=== PATIENT | female | born 1940 | race Caucasian/White ===

== ENCOUNTER 2017-03-01 15:30 | Inpatient (IN) | payer OTHER ==
[~2017-03-01] VITALS: Ht 152.4 cm; Wt 32.3 kg
--- NOTE | ~2017-03-01 | DS ---
[place], [place] DISCHARGE SUMMARY NAME: FRANKLYN CASTILLO [facility] #: [id number] UNIT #: [id number] ROOM: 506 DOCTOR: RUBÉN BRAUN MD BIRTHDATE: [birth year] DOS: 03/03/2017 HISTORY OF PRESENT ILLNESS: The patient has been admitted to hospital with wound infection with hypokalemia. She is feeling very good now and asymptomatic. She is expressing desire to go home and will be given antibiotic by mouth to be taken at home. She has also history of hypokalemia, anemia, hyperglycemia, tobacco abuse, protein caloric malnutrition, essential hypertension, mixed hyperlipidemia, hypothyroidism, COPD, GERD syndrome, vitamin D deficiency. I discussed with the patient in detail that she needs to stop smoking and counseling done about it in detail. The wound is healing satisfactorily. Her wound culture and sensitivity showed moderate white blood cells with gram-positive cocci, which are sensitive to tetracycline and sulfa and the other two ____ which are also sensitive to Bactrim-DS, so I will discharge the patient on Bactrim-DS twice daily and advise to clean her wound properly and address it properly and she will be seen in the office next week. Her blood culture was negative at the time of discharge. The patient's blood pressure 137/87, pulse is 94, respirations 18, temperature 98.5. RUBÉN BRAUN MD CM:DISCHHENRY [id number] RUBÉN BRAUN MD 03/05/17 0525 interface
[~2017-03-01 15:30] MED LIST: AMLODIPINE10 MG PO; ASPIR 8181 MG PO; AVINZA30 M1 PO; BISACODYL LAXATI5 MG PO; CARAFATE1 G1 PO; DIOVAN HCT 25 M1 TA2 PO; DIOVAN320 MG; DIOVAN320 MG PO; METOPROLOL SR25 MG PO; OSCAL/D,OYSTER250 MG PO; OYSTER SHELL CA1 GRA; PRILOSEC20 MG PO; PROTONIX40 MG PO; SENNA PLUS 50 M1 TA1 PO; SENNA PLUS 50 M1 TAB; SENNA PLUS 50 M1 TAB PO; SERTRALINE HYD100 MG PO; SERZONE100 MG PO; SYMBICORT1 AE1 INH; SYNTHROID0.112 MG PO; VITAMIN D2000 IU PO
[2017-03-01 15:39] VITALS: BP 143/71
--- NOTE | 2017-03-01 16:26 | NUR ---
AREA CLEANED WITH SALINE AND BETADINE AND DRESSING APPLIED. JUNIOR UPTON RN.
[2017-03-01 16:36] LABS: BASO % 0.6 % (0.0-1.0); EOS # 0.1 10*3/uL (0.0-0.4); EOS % 1.2 % (1.0-4.0); HEMATOCRIT 33.6 % (37.0-47.0); HEMOGLOBIN 11.6 g/dl (12.0-16.0); LYMPH # 0.8 10*3/uL (1.3-4.4); LYMPH % 14.8 % (27.0-41.0); MEAN CELL VOLUME 92.1 fl (81.0-99.0); MEAN CORPUSCULAR HGB 31.8 pg (27.0-31.0); MEAN CORPUSCULAR HGB CONC 34.5 g/dl (33.0-37.0); MEAN PLATELET VOLUME 9.8 fl (9.6-12.3); MONO # 0.5 10*3/uL (0.1-1.0); MONO % 9.5 % (3.0-9.0); NEUT # 3.7 10*3/uL (2.3-7.9); NEUT % 73.3 % (47.0-73.0); PLATELET COUNT AUTOMATED 190 10*3/uL (130-400); RED BLOOD COUNT 3.65 10*6/uL (4.10-5.10); RED CELL DISTRI WIDTH 13.2 % (0-14.5); WHITE BLOOD COUNT 5.1 10*3/uL (4.8-10.8)
[2017-03-01 16:52] LABS: ALBUMIN 3.4 gm/dl (3.1-4.5); ALKALINE PHOSPHATASE 114 U/L (45-117); BUN 18 mg/dl (7-24); CHLORIDE 107 mmol/L (98-107); CREATININE 0.83 mg/dL (0.55-1.02); POTASSIUM 3.2 mmol/L (3.5-5.1); SGOT/AST 43 IU/L (3-35); SGPT/ALT 60 U/L (12-78); SODIUM 140 mmol/L (136-145); TOTAL PROTEIN 7.9 gm/dL (6.4-8.2)
[2017-03-01 18:15] VITALS: BP 139/58
--- NOTE | 2017-03-01 18:15 | NUR ---
A 76, admitted to 5E, under the services of HERRERA Barker MD with a diagnosis of . Chief complaint is WOUND INFECTION. Patient arrived via ambulatory from ER. Monitor applied. Initial assessment completed. Vital signs taken and recorded. HERRERA BARKER MD notified of admission to the unit. Orders received. See assessment for past medical history, medications and allergies. Patient and/or family oriented to unit. visitation policy reviewed. Clothing/patient valuable form completed. NANCY VARGAS L
[2017-03-01] MEDS ORDERED: MORPHINE SULFAT10 M3 PO (20:03)
[2017-03-01 20:45] VITALS: BP 126/66
[2017-03-02] VITALS: BP 126/58
[2017-03-02 04:00] VITALS: BP 128/56
[2017-03-02 06:52] LABS: BASO % 0.4 % (0.0-1.0); EOS # 0.1 10*3/uL (0.0-0.4); EOS % 1.5 % (1.0-4.0); HEMATOCRIT 32.8 % (37.0-47.0); HEMOGLOBIN 11.2 g/dl (12.0-16.0); LYMPH % 21.1 % (27.0-41.0); MEAN CELL VOLUME 91.1 fl (81.0-99.0); MEAN CORPUSCULAR HGB 31.1 pg (27.0-31.0); MEAN CORPUSCULAR HGB CONC 34.1 g/dl (33.0-37.0); MEAN PLATELET VOLUME 10.1 fl (9.6-12.3); MONO # 0.4 10*3/uL (0.1-1.0); MONO % 7.9 % (3.0-9.0); NEUT # 3.1 10*3/uL (2.3-7.9); NEUT % 68.7 % (47.0-73.0); PLATELET COUNT AUTOMATED 198 10*3/uL (130-400); RED CELL DISTRI WIDTH 13.2 % (0-14.5); WHITE BLOOD COUNT 4.5 10*3/uL (4.8-10.8)
[2017-03-02 07:18] LABS: ALBUMIN 3.2 gm/dl (3.1-4.5); ALKALINE PHOSPHATASE 106 U/L (45-117); BUN 18 mg/dl (7-24); CHLORIDE 111 mmol/L (98-107); CHOLESTEROL 91 mg/dL (<200); CREATININE 0.72 mg/dL (0.55-1.02); HDL CHOLESTEROL 59 mg/dl (40-60); LDL CHOLESTEROL 19 mg/dL (9-159); PHOSPHOROUS 2.7 mg/dL (2.5-4.9); POTASSIUM 3.6 mmol/L (3.5-5.1); SGOT/AST 30 IU/L (3-35); SGPT/ALT 50 U/L (12-78); SODIUM 141 mmol/L (136-145); TOTAL PROTEIN 7.3 gm/dL (6.4-8.2); TRIGLYCERIDES 67 mg/dl (<150); VLDL CHOLESTEROL 13 mg/dL (6-40)
[2017-03-02 07:23] LABS: THYROID STIM HORMONE (HS) 0.077 uIU/ml (0.358-4.75)
[2017-03-02 07:24] LABS: ACT PARTIAL THROMBO TIME 26.6 SECONDS (20.8-31.5)
--- NOTE | 2017-03-02 07:52 | NUR ---
PT REQUESTED AND WAS MEDICATED WITH NORCO FOR C/O GENERALIZED PAIN. RESP EASY AND NONLABORED ON RA. CALL LIGHT IN REACH. WILL MONITOR
[2017-03-02 08:00] VITALS: BP 140/65
--- NOTE | 2017-03-02 08:00 | NUR ---
Elevator Inspector in to talk to patient. Patient states lives at HOME with HER SON. There are 0 steps in the home. Physician: DR JOSHUA Pharmacy: [facility] IN [place] Home health services: NONE Patient's level of ADLs: INDEPENDENT Patient has working utilities: YES DME: NEB/O2 FROM [facility] Follow-up physician's appointment after d/c: PREFERS TO MAKE HER OWN APPT Does patient want to access PORTAL?: Discharge plan HOME. ELIAS HERRERA
[2017-03-02 08:28] LABS: VITAMIN D, 25-HYDROXY 16.2 ng/mL (30-100)
[2017-03-02 12:00] VITALS: BP 133/68
--- NOTE | 2017-03-02 12:58 | NUR ---
PT REQUESTED AND WAS MEDICATED WITH DILAUDID FOR C/O RIGHT SHOULDER PAIN. CALL LIGHT IN REACH. WILL MONITOR
--- NOTE | 2017-03-02 14:00 | NUR ---
MEDICATION EFFECTIVE. CALL LIGHT IN REACH. WILL MONITOR
--- NOTE | 2017-03-02 15:22 | NUR ---
Patient resting quietly with no c/o discomfort. Respirations easy and regular. Vital signs stable. No overt distress. GÉNESIS SERRANO R
[2017-03-02 16:00] VITALS: BP 131/59
[2017-03-02 20:00] VITALS: BP 149/78
--- NOTE | 2017-03-02 21:22 | NUR ---
PRN RESTORIL AND TYLENOL GIVEN FOR PT COMPLAINTS OF SLEEPLESSNESS AND GENERALIZED BACK PAIN RATING IT A 5/10. CALL LIGHT WITHIN REACH, WILL MONITOR
[2017-03-03] VITALS: BP 156/81
--- NOTE | 2017-03-03 00:01 | NUR ---
PRN DILAUDID GIVEN FOR PT COMPLAINTS OF CONTINUED BACK PAIN RATING IT A 5 OUT OF 10. PRN TYLENOL INEFFECTIVE PER PT. PRN RESTORIL INEFFECTIVE WELL
--- NOTE | 2017-03-03 01:00 | NUR ---
PRN MEDICATION APPEARS EFFECTIVE, PT SLEEPING, BREATHING IS EASY AND REGULAR WITHOUT DISTRESS. CALL LIGHT WITHIN REACH, PHYLICIA ANTONIO
[2017-03-03 06:02] LABS: BASO % 0.5 % (0.0-1.0); EOS # 0.1 10*3/uL (0.0-0.4); EOS % 1.7 % (1.0-4.0); HEMATOCRIT 32.3 % (37.0-47.0); LYMPH % 23.6 % (27.0-41.0); MEAN CELL VOLUME 92.6 fl (81.0-99.0); MEAN CORPUSCULAR HGB 31.5 pg (27.0-31.0); MEAN CORPUSCULAR HGB CONC 34.1 g/dl (33.0-37.0); MEAN PLATELET VOLUME 9.9 fl (9.6-12.3); MONO # 0.5 10*3/uL (0.1-1.0); MONO % 12.7 % (3.0-9.0); NEUT # 2.5 10*3/uL (2.3-7.9); NEUT % 60.8 % (47.0-73.0); PLATELET COUNT AUTOMATED 196 10*3/uL (130-400); RED BLOOD COUNT 3.49 10*6/uL (4.10-5.10); RED CELL DISTRI WIDTH 13.1 % (0-14.5); WHITE BLOOD COUNT 4.2 10*3/uL (4.8-10.8)
[2017-03-03 06:31] LABS: BUN 19 mg/dl (7-24); CHLORIDE 107 mmol/L (98-107); CREATININE 0.72 mg/dL (0.55-1.02); POTASSIUM 3.7 mmol/L (3.5-5.1); SODIUM 141 mmol/L (136-145)
[2017-03-03 06:35] LABS: FREE T4 2.64 ng/dl (0.76-1.46)
[2017-03-03 08:00] VITALS: BP 140/73
--- NOTE | 2017-03-03 08:00 | NUR ---
RESTING QUIETLY IN BED, NO C/O NO DISTRESS NOTED. DRESSING TO RIGHT ARM DRY AND INTACT. SEE SHIFT ASSESSMENT.
[2017-03-03 12:00] VITALS: BP 136/87
--- NOTE | 2017-03-03 14:29 | NUR ---
MEDICATED IV DILAUDID FOR C/O RIGHT ARM PAIN. RATES PAIN 7/10. WILL CONTINUE TO MONITOR.
--- NOTE | 2017-03-03 16:45 | NUR ---
DISCHARGED TO HOME IN CARE OF DAUGHTER. INSTRUCTIONS AND PERSCRIPTIONS REVIEWED WITH PT.
== END 2017-03-03 16:45 | disposition home or self-care (01) | DRG 604 ==
LOC: ED 15:30 → EDHOLD 17:28 → 5E 17:28
PROVIDERS: Internal Medicine; Nurse Practitioner; ADMIT Internal Medicine
DX: S51.811A Laceration without foreign body of right forearm, initial encounter (principal); E43 Unspecified severe protein-calorie malnutrition; D64.9 Anemia, unspecified; J44.9 Chronic obstructive pulmonary disease, unspecified; Z68.1 Body mass index [BMI] 19.9 or less, adult; E87.6 Hypokalemia; E03.9 Hypothyroidism, unspecified; E55.9 Vitamin D deficiency, unspecified; E78.2 Mixed hyperlipidemia; K21.9 Gastro-esophageal reflux disease without esophagitis; M19.90 Unspecified osteoarthritis, unspecified site; R94.6 Abnormal results of thyroid function studies; F17.200 Nicotine dependence, unspecified, uncomplicated; R74.0 Nonspecific elevation of levels of transaminase and lactic acid dehydrogenase [LDH]; I10 Essential (primary) hypertension; R73.9 Hyperglycemia, unspecified; Y93.E2 Activity, laundry; Z71.6 Tobacco abuse counseling; Z88.2 Allergy status to sulfonamides; Z88.8 Allergy status to other drugs, medicaments and biological substances; Z91.041 Radiographic dye allergy status; Z79.82 Long term (current) use of aspirin; Z79.899 Other long term (current) drug therapy; Z90.710 Acquired absence of both cervix and uterus; Z82.3 Family history of stroke; Z83.3 Family history of diabetes mellitus; Z82.49 Family history of ischemic heart disease and other diseases of the circulatory system; Z98.51 Tubal ligation status; W31.89XA Contact with other specified machinery, initial encounter; Y92.098 Other place in other non-institutional residence as the place of occurrence of the external cause; Y99.8 Other external cause status

== ENCOUNTER → 2017-03-19 | Outpatient (CLI) | payer OTHER ==
[~2017-03-19] MED LIST changes: +MORPHINE SULFAT10 M3 PO
[2017-03-20 08:12] LABS: HEPATITIS B SURFACE AG Negative (Negative); HEPATITIS C VIRUS ANTIBODY 0.1 s/co (0.0-0.9)
== END | disposition home or self-care (01) ==
LOC: LAB 08:33 → US 09:30
PROVIDERS: Internal Medicine
DX: N13.30 Unspecified hydronephrosis (principal); N28.1 Cyst of kidney, acquired; I71.4 Abdominal aortic aneurysm, without rupture; R74.0 Nonspecific elevation of levels of transaminase and lactic acid dehydrogenase [LDH]; R13.10 Dysphagia, unspecified

== ENCOUNTER → 2017-04-24 | Outpatient (CLI) | payer OTHER | END | disposition home or self-care (01) | LOC: MRI 10:30 | DX: I71.4 Abdominal aortic aneurysm, without rupture (principal); K83.8 Other specified diseases of biliary tract; N13.39 Other hydronephrosis ==

== ENCOUNTER 2017-08-16 10:01 | Inpatient (IN) | payer OTHER ==
[~2017-08-16] VITALS: Ht 154.9 cm; Wt 38.2 kg
[2017-08-16] VITALS (7 sets, daily range): BP systolic 122–164; BP diastolic 78–92
--- NOTE | ~2017-08-16 | PR ---
[place], [place] PROGRESS NOTE NAME: FRANKLYN CASTILLO UNIT #: [id number] ROOM: 522 DOCTOR: TIKA PRIEST MD BIRTHDATE: [birth year] DOS: 08/21/2017 SUBJECTIVE: The patient has been noted with reduction of coughing from yesterday. Wheezing and shortness of breath has been improving. She was also participating in physical therapy and walking with the physical therapy at this morning. OBJECTIVE: VITAL SIGNS: Which were recorded showed normal temperature, respiratory rate 20, heart rate 71, blood pressure 148/66. Pulse ox saturation 97% saturation on 2 liters nasal cannula. HEENT: No acute change. NECK: Supple. CARDIOVASCULAR: S1, S2 is audible. LUNGS: The patient was noted without any wheeze or crackles at the present time. ABDOMEN: Soft, nontender. Bowel sounds present. EXTREMITIES: Without any acute edema. LABORATORY DATA: CBC on 08/21/2017, hemoglobin 11.2, hematocrit 32.1, WBC count normal, platelet count normal. BMP this morning, glucose 124, BUN 21, creatinine normal, sodium 127. The culture of the bronchial washing noted moderate growth of yeast. Gram stain, many white blood cells with moderate epithelial cells, few gram-positive cocci in pairs and chains and few budding yeast. IMPRESSION: The patient with resolving acute exacerbation of chronic obstructive pulmonary disease for this patient's current medical management with progressive reduction in respiratory symptoms noted significant improvement after bronchoscopy. The coughing has been noted significantly decreased. PLAN OF MANAGEMENT: Monitor final culture results. The patient has been assessed for home oxygen supplementation and would need oxygen supplementation with exertion and sleep. PLAN OF TREATMENT: Reduce the Solu-Medrol dose 40 mg b.i.d. today at the present time. Monitor respiratory status in the next 24 hours and possible discharge consideration for the morning. ASSESSMENT: Management discussed with one of the daughters of patient who was present in the room. No changes in antibiotics will be necessary. [place], [place] PROGRESS NOTE NAME: FRANKLYN CASTILLO UNIT #: [id number] ROOM: 522 DOCTOR: TIKA PRIEST MD BIRTHDATE: [birth year] TIKA TOWNSEND MD CM:PNTRANS [id number] TIKA CARRILLO MD 08/21/17 1539 interface
--- NOTE | ~2017-08-16 | PR ---
[place], [place] PROGRESS NOTE [facility] [id number] UNIT #: [id number] ROOM: 522 DOCTOR: KRISTIAN CARRILLO MD,TIKA BIRTHDATE: [birth year] DOS: 08/23/2017 SUBJECTIVE: The patient noted without any acute distress at this time, comfortably resting on the chair. She was planned for possible home discharge today. OBJECTIVE: VITAL SIGNS: Normal temperature, respiratory rate 20, heart rate 86, blood pressure 135/59. Pulse ox saturation on 2 liters nasal cannula 93% saturation. HEENT: No new change. NECK: Supple. CARDIOVASCULAR: S1, S2 is audible. LUNGS: Without any wheeze or crackles at the present time. ABDOMEN: Soft, nontender. Bowel sounds present. EXTREMITIES: Without any acute edema. IMPRESSION: 1. Progressive resolution of acute exacerbation of chronic obstructive pulmonary disease for this patient was noted. 2. Right hydronephrosis. The patient was noted with ____ like right UV junction obstruction for the patient on the CT scan of the abdomen and pelvis, which was done yesterday. PLAN OF MANAGEMENT: From the pulmonary standpoint, the patient with no change in treatment, discharge for this patient whenever stable medically from pulmonary standpoint. Continue the therapy, plan of management and care. Usual treatment, other supportive plan of care and treatments. TIKA TOWNSEND MD CM:PNTRANS [id number] TIKA CARRILLO MD 08/23/17 1521 interface
--- NOTE | ~2017-08-16 | EKG ---
[place], [place] ELECTROCARDIOGRAM REPORT NAME: FRANKLYN CASTILLO UNIT #: [id number] ROOM: 522 DOCTOR: KRISTIAN CARRILLO MD,TIKA BIRTHDATE: [birth year] DOS: 08/18/2017 ELECTROCARDIOGRAM TIME: At 2:44 p.m. Electrocardiogram showed normal sinus rhythm. Heart rate 86 beats per minute. Nonspecific ST-T changes were noted. TIKA TOWNSEND MD CM:EKGRPT:ELECTROCARDIOGRAM REPORT [id number] TIKA CARRILLO MD
--- NOTE | ~2017-08-16 | PR ---
[place], [place] PROGRESS NOTE NAME: FRANKLYN CASTILLO UNIT #: [id number] ROOM: 522 DOCTOR: TIKA PRIEST MD BIRTHDATE: [birth year] DOS: 08/20/2017 SUBJECTIVE: The patient noted n.p.o. past midnight and bronchoscopy planned for today. The patient has not been reported any symptoms of chest pain. Denies symptoms of nausea, vomiting, diarrhea or any abdominal pain. She has been continued on previous treatment, Solu-Medrol, bronchodilators, Mucinex and other which are not noted effective to resolve the cough. The remaining systems were reviewed, they were noted all negative. OBJECTIVE: VITAL SIGNS: For the patient which has been recorded showed normal temperature, respiratory rate 20, heart rate 73, blood pressure 151/74. Pulse oxygen saturation on 2 liters nasal cannula 94% saturation. HEENT: Examination shows head was atraumatic. Eyes nonicterus. NECK: Supple. CARDIOVASCULAR: S1, S2 audible. LUNGS: Noted without any crackles. Expiratory wheezing. Noted in the lungs bilaterally remains persistent. ABDOMEN: Soft, nontender. EXTREMITIES: Without any acute edema with skin lesions or rashes. CENTRAL NERVOUS SYSTEM: Cranial nerves 2-12 intact. No focal deficits. MUSCULOSKELETAL: Without acute deformity. LABORATORY DATA: BMP this morning, normal BUN and creatinine. CBC this morning, hemoglobin 10.6, WBC count and platelet count normal. IMPRESSION: Acute exacerbation of chronic obstructive pulmonary disease, cough and wheezing, which has been noted persistent. N.p.o. past midnight for the patient last night for bronchoscopy planned for today. Over debility. PLAN OF MANAGEMENT: Proceed with bronchoscopy at this time, no changes in the treatment for this patient at this time will be necessary. If any change in the treatment necessary for patient will be ordered for the patient after a bronchoscopy. Usual care. All other supportive therapy, plan of management. [place], [place] PROGRESS NOTE NAME: FRANKLYN CASTILLO UNIT #: [id number] ROOM: 522 DOCTOR: TIKA PRIEST MD BIRTHDATE: [birth year] TIKA TOWNSEND MD CM:PNTRANS [id number] TIKA CARRILLO MD 08/20/17 2311 interface
--- NOTE | ~2017-08-16 | PR ---
[place], [place] PROGRESS NOTE NAME: FRANKLYN CASTILLO [facility] #: [id number] UNIT #: [id number] ROOM: 522 DOCTOR: KRISTIAN CARRILLO MD,TIKA BIRTHDATE: [birth year] DOS: 08/22/2017 SUBJECTIVE: She has been noted to have progressive improvement and resolution of the acute symptoms with improving shortness of breath. She denies symptoms of chest pain. Coughing has improved markedly. Shortness of breath and wheezing was resolving progressively. OBJECTIVE: VITAL SIGNS: For the patient which were recorded showed the temperature noted as normal. The respiratory rate of the patient recorded as 20, heart rate 85, blood pressure 155/73. Pulse oxygen saturation on 2 liters nasal cannula at rest was 95% saturation. The patient noted to desaturate 6-minute walk test, will be requiring oxygen supplementation. HEENT: Examination shows head was atraumatic. Eyes nonicterus. NECK: Supple. CARDIOVASCULAR: S1, S2 audible. LUNGS: Noted with no wheezing, no crackles. ABDOMEN: Soft, nontender. Bowel sounds present. EXTREMITIES: No acute edema. LABORATORY DATA: CBC of the patient noted mild anemia, normal WBC, platelet count. Acid fast bacillus bronchial washing negative. Final culture results were pending. Culture of the bronchial washing of the patient were noted moderate growth of yeast. BMP today noted normal BUN and creatinine. IMPRESSION: The patient has been currently noted stable at the present time with progressive improvement and resolution of the acute respiratory failure. The patient with acute tracheobronchitis, the patient with chronic obstructive pulmonary disease exacerbation, improving ____ PLAN OF TREATMENT: Discharge the patient on home oxygen with tapering dose of prednisone and the antibiotics. Outpatient followup suggested post-discharge. TIKA TOWNSEND MD CM:PNTRANS [phone] TIKA CARRILLO MD 08/22/17 1754 interface
--- NOTE | ~2017-08-16 | PROC NOTE ---
[place], [place] PROCEDURE NOTE NAME: FRANKLYN CASTILLO UNIT #: [id number] ROOM: 522 DOCTOR: KRISTIAN CARRILLO MD,TIKA BIRTHDATE: [birth year] DOS: 08/20/2017 BRONCHOSCOPY NOTE PREOPERATIVE DIAGNOSES: Severe cough and wheezing, maximum medical therapy, nonresolving. POSTOPERATIVE DIAGNOSES: Acute severe inflammatory changes noted in the airway with tracheobronchitis as well as severe impaction of the mucus plugs noted in endobronchial tree, all of the subsegments. No endobronchial obstructive lesions. PROCEDURE DESCRIPTION: Informed consent obtained from the patient. The patient brought to the OR and placed in supine position. Conscious sedation was given by the Anesthesia Department physician. After that the bronchoscope advanced to the airway into the laryngeal area. Epiglottis and vocal cords were seen. Vocal cords moving symmetrical movements, yellowish in color. Bronchoscope advanced through vocal cord and tracheal lumen noted very thick mucoid secretion with purulent secretions suctioned out to the sanchez level. The current noted sharp. Right upper, right middle, right lower, left upper, lingular bronchi was all noted impacted with very thick plugs of the mucus removed from the endobronchial tree bilaterally. Severe inflammatory changes noted with very friable mucosa with touch of the scope. The mucus plug was extracted from the endobronchial tree subsegments bilaterally sent for cultures. Procedure well tolerated by the patient. TIKA TOWNSEND MD CM:PROCNOTE:PROCEDURE NOTE [id number] TIKA CARRILLO MD
--- NOTE | ~2017-08-16 | CON ---
[place], [place] REPORT OF CONSULTATION NAME: FRANKLYN CASTILLO [facility] #: [id number] UNIT #: [id number] ROOM: 522 DOCTOR: TIKA PRIEST MD BIRTHDATE: [birth year] DOS: 08/18/2017 CONSULTATION REQUESTED BY: Dr. Campbell. REASON FOR CONSULTATION: Nonresolution of current symptoms with acute exacerbation of COPD. HISTORY OF PRESENT ILLNESS: This 77-year-old white female patient who has been admitted to the hospital under care of Dr. Yadira Campbell as the patient has been noted progressively increased respiratory symptoms with coughing and productive cough for several days. She has been treated as an outpatient with azithromycin with tapering prednisone, later Levaquin, but no response to the treatment was noted. The patient has been admitted to the hospital for further medical management. 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 The symptoms were noted recently worsened with the current illness. The patient has been noted coughing issues, sputum expectoration, thick yellowish in color. Currently noted with no sputum expectoration excessive, severe coughing with chest congestion. She was also noticed with symptoms of shortness breath that occurs with exertion, not noted at rest. She denies any symptoms of chest pain at this time. REVIEW OF SYSTEMS: Remaining systems were reviewed for the patient as follows: CONSTITUTIONAL: She does report symptoms of fatigue and tiredness. Denies symptoms of fever or chills. EYES: Denies any burning, redness, or tenderness. EARS, NOSE, THROAT SYMPTOMS: Denies sore throat, hoarseness, otalgia, postnasal drainage or epistaxis. CARDIOVASCULAR: Denies anginal pain, edema or pain of lower extremities. GASTROINTESTINAL: Denies dysphagia, nausea, vomiting, diarrhea, abdominal pain, hematemesis, melena or hematochezia. SKIN: Denies any lesions or rashes. MUSCULOSKELETAL: No acute joint pain, redness, or tenderness. Remaining systems were reviewed, they were noted all negative. PAST MEDICAL HISTORY: 1. COPD. 2. Dependence of the pain medication. The patient currently stopped taking Percocet. 3. History of degenerative arthritis. 4. Gastroesophageal reflux. 5. Chronic pain syndrome. 6. Hypothyroidism. 7. Mixed hyperlipidemia. 8. Chronic nicotine abuse. 9. History of vitamin D deficiency. SOCIAL HISTORY: Reported as , six children. Tobacco use since age of [age] years old, a pack of cigarettes a day, active use. No history of alcohol or use illicit drugs. [place], [place] REPORT OF CONSULTATION NAME: FRANKYLN CASTILLO UNIT #: [id number] ROOM: 522 DOCTOR: TIKA PRIEST MD BIRTHDATE: [birth year] FAMILY HISTORY: The patient's father from complications of esophageal cancer at age of 8282 years old. Mother at 72 years old with complication of CVA and hypertension. PAST SURGICAL HISTORY: Noted: 1. Right shoulder arthroscopy. 2. Complete abdominal hysterectomy. 3. Peptic ulcer surgery. HOME MEDICATIONS: Noted use of Ventolin HFA, amlodipine, aspirin, Symbicort, levothyroxine, metoprolol, omeprazole, Percocet recently discontinued, Protonix, Senna Plus, sertraline, Flomax, losartan and vitamin D. DRUG ALLERGIES: Reported allergies to: 1. SULFA DRUGS. 2. HYDROCHLOROTHIAZIDE. 3. IRON. PHYSICAL EXAMINATION: GENERAL: A 77-year-old female patient currently sitting on her bed for the patient without acute distress. Height of 5 feet 1 inch, weight of 75 pounds. VITAL SIGNS: Noted as temperature 99.3 degrees Fahrenheit to normal temperature, respirations 16-20, heart rate 90-89, blood pressure 126/64-152/74. The pulse ox saturation on 2 liters nasal cannula at 99-100% saturation noted. HEENT: Head was atraumatic. Eyes nonicterus. NECK: Supple. CARDIOVASCULAR: S1, S2 is audible. LUNGS: The patient was noted without any crackles. Diffuse expiratory wheezing were noted, which was severe. Breath sounds are noted mildly decreased. ABDOMEN: Flat, soft, nontender. Bowel sounds present. EXTREMITIES: Without any acute edema, clubbing, cyanosis. MUSCULOSKELETAL: Without any acute deformity. SKIN: No lesions or rashes. CENTRAL NERVOUS SYSTEM: Cranial nerves 2-12 intact. LABORATORY DATA: Blood culture of the patient on the 08/16/2017 noted normal. CBC of the patient this morning, hemoglobin 10.8, hematocrit and platelet count were normal. Urine culture, no bacterial growth from admission. The CBC of the patient of 08/18/2017, hemoglobin 10.8, hematocrit 31.6, WBC count and platelet count of the patient both noted as normal. The chest x-ray 2 view, which was done for the patient on 08/16/2017 noted with changes of severe COPD, hyperinflation without any acute pulmonary infiltration. IMPRESSION: 1. The patient who has been currently noted persistent acute exacerbation of chronic obstructive pulmonary disease with failed outpatient treatment without evidence of pneumonia, strong suspicion of mucus impaction of the airways. The patient noted with history of chronic nicotine abuse as well. 2. Obvious protein-calorie malnutrition as well was suspected. [place], [place] REPORT OF CONSULTATION NAME: FRANKLYN CASTILLO UNIT #: [id number] ROOM: 522 DOCTOR: KRISTIAN CARRILLO MD,TIKA BIRTHDATE: [birth year] 3. Chronic nicotine dependence. 4. History of hypothyroidism and other medical illnesses including dependence on narcotic medications. PLAN OF MANAGEMENT: Continuation of current dose of Solu-Medrol, bronchodilators, antibiotics and Mucinex. Obtain sputum for Gram stain and culture if the patient able to expectorate. The bronchoscopy was assessed for the patient to be done on Sunday morning. Risks and benefits were discussed. N.p.o. past midnight status will be achieved for Sunday midnight. Any addition to a change in the treatment of the patient, recommendation will be made based on the progression of the illness and other additional labs available. Thanks for allowing me to participate in the care of this patient. TIKA TOWNSEND MD CM:CONSTR:REPORT OF CONSULTATION [id number] 08/19/17 0432 interface
[~2017-08-16 10:01] MED LIST changes: -DIOVAN320 MG
[2017-08-16 10:50] LABS: HEMATOCRIT 38.4 % (37.0-47.0); HEMOGLOBIN 13.5 g/dl (12.0-16.0); MEAN CELL VOLUME 89.9 fl (81.0-99.0); MEAN CORPUSCULAR HGB 31.6 pg (27.0-31.0); MEAN CORPUSCULAR HGB CONC 35.2 g/dl (33.0-37.0); MEAN PLATELET VOLUME 9.3 fl (9.6-12.3); PLATELET COUNT AUTOMATED 288 10*3/uL (130-400); RED BLOOD COUNT 4.27 10*6/uL (4.10-5.10); WHITE BLOOD COUNT 15.8 10*3/uL (4.8-10.8)
[2017-08-16 11:04] LABS: ALBUMIN 3.8 gm/dl (3.1-4.5); ALKALINE PHOSPHATASE 98 U/L (45-117); BUN 23 mg/dl (7-24); CHLORIDE 98 mmol/L (98-107); CREATININE 0.98 mg/dL (0.55-1.02); POTASSIUM 3.6 mmol/L (3.5-5.1); SGOT/AST 33 IU/L (3-35); SGPT/ALT 34 U/L (12-78); SODIUM 132 mmol/L (136-145); TOTAL PROTEIN 8.6 gm/dL (6.4-8.2)
[2017-08-16 11:05] LABS: TROPONIN I 0.033 ng/ml (<0.045)
[2017-08-16 11:09] LABS: PLATELET SUFFICIENCY NORMAL (NORMAL); TOTAL CELLS COUNTED 100 #CELLS
[2017-08-16 11:57] LABS: BILIRUBIN NEGATIVE (NEGATIVE); BLOOD 1+ (NEGATIVE); CLARITY CLEAR (CLEAR); COLOR YELLOW (YELLOW); GLUCOSE NEGATIVE (NEGATIVE); KETONE NEGATIVE (NEGATIVE); LEUKO ESTERASE NEGATIVE (NEGATIVE); NITRITE NEGATIVE (NEGATIVE); UROBILINOGEN 0.2 E.U./dl (0.2-1.0)
[2017-08-16 12:04] LABS: MUCOUS 1+
[2017-08-16 12:14] LABS: URINE AMPHETAMINES < 1000 (1000ng/ml); URINE BARBITURATES < 200 (200ng/ml); URINE BENZODIAZEPINES < 200 (200ng/ml); URINE CANNABINOIDS (THC) < 50 (50ng/ml); URINE METHADONE < 300 (300ng/ml); URINE OPIATES < 300 (300ng/ml)
[2017-08-16 12:15] LABS: URINE COCAINE < 300 (300ng/ml); URINE PHENCYCLIDINE < 25 (25ng/ml)
[2017-08-16] MEDS ORDERED: PERCOCET 5-3251 EACH PO (13:54)
[2017-08-16] MEDS ORDERED: TOPCARE OMEPRAZ20 MG PO (14:02)
[2017-08-16] MEDS ORDERED: TAMSULOSIN HCL0.4 MG PO (14:07)
[2017-08-16] MEDS ORDERED: VENTOLIN 02.5 MG/3 M INH (14:13)
[2017-08-17] VITALS: BP 132/88; BP 138/94
[2017-08-17] MEDS ORDERED: Lopressor25 MG PO (04:01)
[2017-08-17 06:54] LABS: HEMATOCRIT 32.6 % (37.0-47.0); MEAN CELL VOLUME 92.9 fl (81.0-99.0); MEAN CORPUSCULAR HGB 31.3 pg (27.0-31.0); MEAN CORPUSCULAR HGB CONC 33.7 g/dl (33.0-37.0); MEAN PLATELET VOLUME 9.7 fl (9.6-12.3); PLATELET COUNT AUTOMATED 212 10*3/uL (130-400); RED BLOOD COUNT 3.51 10*6/uL (4.10-5.10); RED CELL DISTRI WIDTH 13.3 % (0-14.5); WHITE BLOOD COUNT 9.9 10*3/uL (4.8-10.8)
[2017-08-17 07:29] LABS: BUN 21 mg/dl (7-24); CHLORIDE 102 mmol/L (98-107); CHOLESTEROL 165 mg/dL (<200); CREATININE 0.75 mg/dL (0.55-1.02); PHOSPHOROUS 3.3 mg/dL (2.5-4.9); POTASSIUM 3.4 mmol/L (3.5-5.1); SODIUM 134 mmol/L (136-145); TRIGLYCERIDES 63 mg/dl (<150); VLDL CHOLESTEROL 13 mg/dL (6-40)
[2017-08-17 07:40] LABS: HDL CHOLESTEROL 96 mg/dl (40-60); LDL CHOLESTEROL 56 mg/dL (9-159); PREALBUMIN 22 mg/dl (20-40)
[2017-08-17 08:00] VITALS: BP 146/74
[2017-08-17 08:10] LABS: PLATELET SUFFICIENCY NORMAL (NORMAL); TOTAL CELLS COUNTED 100 #CELLS
[2017-08-17 12:00] VITALS: BP 142/94
[2017-08-17 16:00] VITALS: BP 121/57
[2017-08-17 20:00] VITALS: BP 129/72
[2017-08-18] VITALS: BP 152/74
[2017-08-18 07:13] LABS: HEMATOCRIT 31.6 % (37.0-47.0); HEMOGLOBIN 10.8 g/dl (12.0-16.0); MEAN CELL VOLUME 92.1 fl (81.0-99.0); MEAN CORPUSCULAR HGB 31.5 pg (27.0-31.0); MEAN CORPUSCULAR HGB CONC 34.2 g/dl (33.0-37.0); MEAN PLATELET VOLUME 9.7 fl (9.6-12.3); PLATELET COUNT AUTOMATED 202 10*3/uL (130-400); RED BLOOD COUNT 3.43 10*6/uL (4.10-5.10); RED CELL DISTRI WIDTH 13.4 % (0-14.5); WHITE BLOOD COUNT 9.8 10*3/uL (4.8-10.8)
[2017-08-18 07:28] LABS: BUN 17 mg/dl (7-24); CHLORIDE 102 mmol/L (98-107); CREATININE 0.63 mg/dL (0.55-1.02); POTASSIUM 3.7 mmol/L (3.5-5.1); SODIUM 134 mmol/L (136-145)
[2017-08-18 08:00] VITALS: BP 159/75
[2017-08-18 08:32] LABS: PLATELET SUFFICIENCY NORMAL (NORMAL); TOTAL CELLS COUNTED 100 #CELLS
[2017-08-18 12:00] VITALS: BP 167/88
[2017-08-18 14:06] LABS: ACT PARTIAL THROMBO TIME 24.7 SECONDS (20.8-31.5)
[2017-08-18 16:00] VITALS: BP 126/64
[2017-08-18 20:00] VITALS: BP 146/77
[2017-08-19] VITALS: BP 141/70
[2017-08-19 07:19] LABS: BASO % 0.1 % (0.0-1.0); HEMATOCRIT 31.4 % (37.0-47.0); HEMOGLOBIN 10.6 g/dl (12.0-16.0); LYMPH # 0.5 10*3/uL (1.3-4.4); LYMPH % 5.8 % (27.0-41.0); MEAN CELL VOLUME 91.5 fl (81.0-99.0); MEAN CORPUSCULAR HGB 30.9 pg (27.0-31.0); MEAN CORPUSCULAR HGB CONC 33.8 g/dl (33.0-37.0); MEAN PLATELET VOLUME 9.5 fl (9.6-12.3); MONO # 0.7 10*3/uL (0.1-1.0); MONO % 7.3 % (3.0-9.0); NEUT # 7.7 10*3/uL (2.3-7.9); NEUT % 86.1 % (47.0-73.0); PLATELET COUNT AUTOMATED 199 10*3/uL (130-400); RED BLOOD COUNT 3.43 10*6/uL (4.10-5.10); RED CELL DISTRI WIDTH 13.2 % (0-14.5); WHITE BLOOD COUNT 8.9 10*3/uL (4.8-10.8)
[2017-08-19 07:41] LABS: BUN 16 mg/dl (7-24); CHLORIDE 101 mmol/L (98-107); CREATININE 0.65 mg/dL (0.55-1.02); POTASSIUM 2.9 mmol/L (3.5-5.1); SODIUM 135 mmol/L (136-145)
[2017-08-19 08:00] VITALS: BP 159/70
[2017-08-19 12:00] VITALS: BP 149/74
[2017-08-19 16:00] VITALS: BP 149/80
[2017-08-19 20:00] VITALS: BP 170/74
[2017-08-19 23:00] VITALS: BP 184/88
[2017-08-20] VITALS (9 sets, daily range): BP systolic 120–169; BP diastolic 62–86
[2017-08-20 06:35] LABS: BUN 15 mg/dl (7-24); CHLORIDE 91 mmol/L (98-107); CREATININE 0.51 mg/dL (0.55-1.02); IRON 89 ug/dL (50-170); POTASSIUM 3.7 mmol/L (3.5-5.1); SODIUM 127 mmol/L (136-145); TOTAL IRON BINDING CAPACITY 293 ug/dl (250-450)
[2017-08-21] VITALS: BP 120/60
[2017-08-21 06:48] LABS: HEMATOCRIT 32.1 % (37.0-47.0); HEMOGLOBIN 11.2 g/dl (12.0-16.0); MEAN CORPUSCULAR HGB 30.9 pg (27.0-31.0); MEAN CORPUSCULAR HGB CONC 34.9 g/dl (33.0-37.0); MEAN PLATELET VOLUME 9.5 fl (9.6-12.3); PLATELET COUNT AUTOMATED 228 10*3/uL (130-400); RED BLOOD COUNT 3.63 10*6/uL (4.10-5.10); RED CELL DISTRI WIDTH 12.6 % (0-14.5); WHITE BLOOD COUNT 7.5 10*3/uL (4.8-10.8)
[2017-08-21 06:52] LABS: MEAN CELL VOLUME 88.4 fl (81.0-99.0)
[2017-08-21 07:32] LABS: BUN 21 mg/dl (7-24); CHLORIDE 90 mmol/L (98-107); POTASSIUM 4.2 mmol/L (3.5-5.1); SODIUM 127 mmol/L (136-145)
[2017-08-21 07:33] LABS: CREATININE 0.71 mg/dL (0.55-1.02)
[2017-08-21 07:41] LABS: PLATELET SUFFICIENCY NORMAL (NORMAL); TOTAL CELLS COUNTED 100 #CELLS
[2017-08-21 08:00] VITALS: BP 148/66
[2017-08-21 12:00] VITALS: BP 156/70
[2017-08-21 15:07] LABS: ACID FAST SPEC PROCESSING Concentration (.)
[2017-08-21 16:00] VITALS: BP 114/64
[2017-08-21 20:00] VITALS: BP 117/54
[2017-08-22] VITALS: BP 127/64
[2017-08-22 06:35] LABS: ALBUMIN 2.8 gm/dl (3.1-4.5); ALKALINE PHOSPHATASE 56 U/L (45-117); BUN 19 mg/dl (7-24); CHLORIDE 95 mmol/L (98-107); CREATININE 0.61 mg/dL (0.55-1.02); PHOSPHOROUS 2.4 mg/dL (2.5-4.9); POTASSIUM 3.6 mmol/L (3.5-5.1); SGOT/AST 20 IU/L (3-35); SGPT/ALT 21 U/L (12-78); SODIUM 130 mmol/L (136-145); URIC ACID 1.6 mg/dL (2.6-6.0)
[2017-08-22 06:52] LABS: HEMATOCRIT 30.4 % (37.0-47.0); HEMOGLOBIN 10.7 g/dl (12.0-16.0); MEAN CELL VOLUME 88.9 fl (81.0-99.0); MEAN CORPUSCULAR HGB 31.3 pg (27.0-31.0); MEAN CORPUSCULAR HGB CONC 35.2 g/dl (33.0-37.0); MEAN PLATELET VOLUME 9.6 fl (9.6-12.3); PLATELET COUNT AUTOMATED 202 10*3/uL (130-400); RED BLOOD COUNT 3.42 10*6/uL (4.10-5.10); RED CELL DISTRI WIDTH 12.8 % (0-14.5)
[2017-08-22 08:00] VITALS: BP 155/73
[2017-08-22 08:00] LABS: TOTAL CELLS COUNTED 100 #CELLS
[2017-08-22 08:01] LABS: PLATELET SUFFICIENCY NORMAL (NORMAL)
[2017-08-22 12:00] VITALS: BP 156/80
[2017-08-22 16:00] VITALS: BP 117/49
[2017-08-22 20:00] VITALS: BP 136/74
[2017-08-23] VITALS: BP 136/74
[2017-08-23 06:51] LABS: HEMATOCRIT 30.1 % (37.0-47.0); HEMOGLOBIN 10.5 g/dl (12.0-16.0); MEAN CELL VOLUME 89.3 fl (81.0-99.0); MEAN CORPUSCULAR HGB 31.2 pg (27.0-31.0); MEAN CORPUSCULAR HGB CONC 34.9 g/dl (33.0-37.0); MEAN PLATELET VOLUME 9.4 fl (9.6-12.3); PLATELET COUNT AUTOMATED 208 10*3/uL (130-400); RED BLOOD COUNT 3.37 10*6/uL (4.10-5.10); RED CELL DISTRI WIDTH 12.9 % (0-14.5); WHITE BLOOD COUNT 8.4 10*3/uL (4.8-10.8)
[2017-08-23 07:01] LABS: ALBUMIN 2.8 gm/dl (3.1-4.5); ALKALINE PHOSPHATASE 57 U/L (45-117); BUN 20 mg/dl (7-24); CHLORIDE 97 mmol/L (98-107); CREATININE 0.67 mg/dL (0.55-1.02); PHOSPHOROUS 2.8 mg/dL (2.5-4.9); POTASSIUM 3.5 mmol/L (3.5-5.1); SGOT/AST 19 IU/L (3-35); SGPT/ALT 24 U/L (12-78); SODIUM 132 mmol/L (136-145)
[2017-08-23 07:25] LABS: PLATELET SUFFICIENCY NORMAL (NORMAL); TOTAL CELLS COUNTED 100 #CELLS
[2017-08-23 08:00] VITALS: BP 151/72
[2017-08-23 12:00] VITALS: BP 135/59
[2017-08-23] MEDS ORDERED: FLUCONAZOLE100 MG PO (13:31)
[2017-08-23] MEDS ORDERED: PREDNISONE10 MG PO (13:31)
[2017-08-23] MEDS ORDERED: REQUIP0.5 MG PO (13:31)
[2017-08-23] MEDS ORDERED: DOXYCYCLINE100 M3 PO (13:31)
== END 2017-08-23 14:35 | disposition home or self-care (01) | DRG 871 ==
LOC: ED 10:01 → 5E 12:23 → EDHOLD 12:23 → 5E 12:45
PROVIDERS: Internal Medicine; Internal Medicine Critical Care Medicine; Nurse Practitioner; Student in an Organized Health Care Education/Training Program
PROC: 0BC78ZZ Extirpation of Matter from Left Main Bronchus, Via Natural or Artificial Opening Endoscopic (ICD-10-PCS; principal; 2017-08-20)
PROC: 0BC68ZZ Extirpation of Matter from Right Lower Lobe Bronchus, Via Natural or Artificial Opening Endoscopic (ICD-10-PCS; principal; 2017-08-20)
PROC: 0BC88ZZ Extirpation of Matter from Left Upper Lobe Bronchus, Via Natural or Artificial Opening Endoscopic (ICD-10-PCS; principal; 2017-08-20)
PROC: 0BC98ZZ Extirpation of Matter from Lingula Bronchus, Via Natural or Artificial Opening Endoscopic (ICD-10-PCS; principal; 2017-08-20)
PROC: 0BC58ZZ Extirpation of Matter from Right Middle Lobe Bronchus, Via Natural or Artificial Opening Endoscopic (ICD-10-PCS; principal; 2017-08-20)
PROC: 0BC48ZZ Extirpation of Matter from Right Upper Lobe Bronchus, Via Natural or Artificial Opening Endoscopic (ICD-10-PCS; principal; 2017-08-20)
PROC: 0BCB8ZZ Extirpation of Matter from Left Lower Lobe Bronchus, Via Natural or Artificial Opening Endoscopic (ICD-10-PCS; principal; 2017-08-20)
PROC: 0BC38ZZ Extirpation of Matter from Right Main Bronchus, Via Natural or Artificial Opening Endoscopic (ICD-10-PCS; principal; 2017-08-20)
PROC: 0BC18ZZ Extirpation of Matter from Trachea, Via Natural or Artificial Opening Endoscopic (ICD-10-PCS; principal; 2017-08-20)
DX: A41.9 Sepsis, unspecified organism (principal); J18.9 Pneumonia, unspecified organism; J96.00 Acute respiratory failure, unspecified whether with hypoxia or hypercapnia; N13.1 Hydronephrosis with ureteral stricture, not elsewhere classified; J44.1 Chronic obstructive pulmonary disease with (acute) exacerbation; E87.1 Hypo-osmolality and hyponatremia; J44.0 Chronic obstructive pulmonary disease with (acute) lower respiratory infection; T17.590A Other foreign object in bronchus causing asphyxiation, initial encounter; Z68.1 Body mass index [BMI] 19.9 or less, adult; Z66 Do not resuscitate; Z51.5 Encounter for palliative care; R31.29 Other microscopic hematuria; K21.9 Gastro-esophageal reflux disease without esophagitis; I71.4 Abdominal aortic aneurysm, without rupture; J20.9 Acute bronchitis, unspecified; K57.30 Diverticulosis of large intestine without perforation or abscess without bleeding; I10 Essential (primary) hypertension; K59.00 Constipation, unspecified; E78.2 Mixed hyperlipidemia; G89.29 Other chronic pain; M25.519 Pain in unspecified shoulder; E03.9 Hypothyroidism, unspecified; E55.9 Vitamin D deficiency, unspecified; F17.210 Nicotine dependence, cigarettes, uncomplicated; R63.6 Underweight; R19.7 Diarrhea, unspecified; X58.XXXA Exposure to other specified factors, initial encounter; R80.8 Other proteinuria; M19.90 Unspecified osteoarthritis, unspecified site; Z90.710 Acquired absence of both cervix and uterus; Z82.3 Family history of stroke; Z82.49 Family history of ischemic heart disease and other diseases of the circulatory system; Z80.0 Family history of malignant neoplasm of digestive organs; Z88.2 Allergy status to sulfonamides; Z71.6 Tobacco abuse counseling; Z28.1 Immunization not carried out because of patient decision for reasons of belief or group pressure; Z88.8 Allergy status to other drugs, medicaments and biological substances; Z79.82 Long term (current) use of aspirin; Z79.899 Other long term (current) drug therapy; Z99.81 Dependence on supplemental oxygen; Y93.89 Activity, other specified; Y92.89 Other specified places as the place of occurrence of the external cause; Y99.8 Other external cause status

== ENCOUNTER 2017-08-26 08:51 | Emergency (ER) | payer OTHER ==
[~2017-08-26] VITALS: Wt 49.9 kg
[~2017-08-26 08:51] MED LIST changes: +DOXYCYCLINE100 M3 PO; +FLUCONAZOLE100 MG PO; +Lopressor25 MG PO; +PERCOCET 5-3251 EACH PO; +PREDNISONE10 MG PO; +REQUIP0.5 MG PO; +TAMSULOSIN HCL0.4 MG PO; +TOPCARE OMEPRAZ20 MG PO; +VENTOLIN 02.5 MG/3 M INH
[2017-08-26 08:53] VITALS: BP 156/78
[2017-08-26 09:40] LABS: BASO % 0.1 % (0.0-1.0); EOS # 0.1 10*3/uL (0.0-0.4); EOS % 0.7 % (1.0-4.0); HEMOGLOBIN 11.3 g/dl (12.0-16.0); LYMPH % 11.2 % (27.0-41.0); MEAN CELL VOLUME 89.1 fl (81.0-99.0); MEAN CORPUSCULAR HGB 31.5 pg (27.0-31.0); MEAN CORPUSCULAR HGB CONC 35.3 g/dl (33.0-37.0); MEAN PLATELET VOLUME 8.8 fl (9.6-12.3); MONO # 0.7 10*3/uL (0.1-1.0); MONO % 7.5 % (3.0-9.0); NEUT # 7.2 10*3/uL (2.3-7.9); NEUT % 79.9 % (47.0-73.0); PLATELET COUNT AUTOMATED 228 10*3/uL (130-400); RED BLOOD COUNT 3.59 10*6/uL (4.10-5.10); RED CELL DISTRI WIDTH 12.6 % (0-14.5)
[2017-08-26 09:50] LABS: ACT PARTIAL THROMBO TIME 22.3 SECONDS (20.8-31.5)
[2017-08-26 09:57] LABS: ALBUMIN 3.2 gm/dl (3.1-4.5); ALKALINE PHOSPHATASE 64 U/L (45-117); BUN 17 mg/dl (7-24); CHLORIDE 89 mmol/L (98-107); CREATININE 0.58 mg/dL (0.55-1.02); POTASSIUM 3.1 mmol/L (3.5-5.1); SGOT/AST 21 IU/L (3-35); SGPT/ALT 25 U/L (12-78); SODIUM 130 mmol/L (136-145); TOTAL PROTEIN 6.3 gm/dL (6.4-8.2)
[2017-08-26 09:58] LABS: TROPONIN I 0.032 ng/ml (<0.045)
[2017-08-26 10:37] LABS: BILIRUBIN NEGATIVE (NEGATIVE); BLOOD NEGATIVE (NEGATIVE); CLARITY CLEAR (CLEAR); COLOR YELLOW (YELLOW); GLUCOSE NEGATIVE (NEGATIVE); KETONE NEGATIVE (NEGATIVE); LEUKO ESTERASE NEGATIVE (NEGATIVE); NITRITE NEGATIVE (NEGATIVE); UROBILINOGEN 0.2 E.U./dl (0.2-1.0)
== END 2017-08-26 12:12 | disposition home or self-care (01) ==
LOC: ED 08:51
PROVIDERS: Emergency Medicine
DX: J44.9 Chronic obstructive pulmonary disease, unspecified (principal); E87.6 Hypokalemia; E87.1 Hypo-osmolality and hyponatremia; R60.0 Localized edema; M19.90 Unspecified osteoarthritis, unspecified site; I10 Essential (primary) hypertension; K21.9 Gastro-esophageal reflux disease without esophagitis; E03.9 Hypothyroidism, unspecified; F17.200 Nicotine dependence, unspecified, uncomplicated; Z98.890 Other specified postprocedural states; Z90.710 Acquired absence of both cervix and uterus; Z98.51 Tubal ligation status; Z79.82 Long term (current) use of aspirin; Z79.899 Other long term (current) drug therapy; Z88.2 Allergy status to sulfonamides; Z88.8 Allergy status to other drugs, medicaments and biological substances; Z99.81 Dependence on supplemental oxygen

== ENCOUNTER 2017-10-10 15:02 | Inpatient (IN) | payer OTHER ==
[~2017-10-10] VITALS: Ht 154.9 cm; Wt 34.3 kg
[~2017-10-10 15:02] MED LIST changes: +LEVOXYL137 MCG PO; -SYNTHROID0.112 MG PO
[2017-10-10 15:40] LABS: BASO % 0.3 % (0.0-1.0); EOS # 0.1 10*3/uL (0.0-0.4); EOS % 1.6 % (1.0-4.0); HEMATOCRIT 31.9 % (37.0-47.0); HEMOGLOBIN 10.4 g/dl (12.0-16.0); LYMPH # 0.9 10*3/uL (1.3-4.4); LYMPH % 13.2 % (27.0-41.0); MEAN CELL VOLUME 94.7 fl (81.0-99.0); MEAN CORPUSCULAR HGB 30.9 pg (27.0-31.0); MEAN CORPUSCULAR HGB CONC 32.6 g/dl (33.0-37.0); MEAN PLATELET VOLUME 9.5 fl (9.6-12.3); MONO # 0.7 10*3/uL (0.1-1.0); NEUT # 5.1 10*3/uL (2.3-7.9); NEUT % 74.5 % (47.0-73.0); PLATELET COUNT AUTOMATED 211 10*3/uL (130-400); RED BLOOD COUNT 3.37 10*6/uL (4.10-5.10); RED CELL DISTRI WIDTH 12.9 % (0-14.5); WHITE BLOOD COUNT 6.8 10*3/uL (4.8-10.8)
[2017-10-10 15:48] LABS: ACT PARTIAL THROMBO TIME 23.5 SECONDS (20.8-31.5)
[2017-10-10 15:55] LABS: ALBUMIN 3.5 gm/dl (3.1-4.5); ALKALINE PHOSPHATASE 92 U/L (45-117); BUN 17 mg/dl (7-24); CHLORIDE 103 mmol/L (98-107); CREATININE 0.71 mg/dL (0.55-1.02); POTASSIUM 3.8 mmol/L (3.5-5.1); SGOT/AST 35 IU/L (3-35); SGPT/ALT 45 U/L (12-78); SODIUM 141 mmol/L (136-145); TOTAL PROTEIN 7.1 gm/dL (6.4-8.2); TROPONIN I 0.044 ng/ml (<0.045)
[2017-10-10] MEDS ORDERED: REQUIP0.5 MG PO (16:05)
[2017-10-10] MEDS ORDERED: LASIX40 MG PO (16:06)
[2017-10-10] MEDS ORDERED: KLOR-CON M1010 ME1 PO (16:07)
[2017-10-10] MEDS ORDERED: B121000 MCG/2 IM (16:08)
[2017-10-10 20:00] VITALS: BP 152/89
[2017-10-10 21:15] LABS: BILIRUBIN NEGATIVE (NEGATIVE); BLOOD TRACE-INTACT (NEGATIVE); CLARITY CLEAR (CLEAR); COLOR YELLOW (YELLOW); GLUCOSE NEGATIVE (NEGATIVE); KETONE NEGATIVE (NEGATIVE); LEUKO ESTERASE NEGATIVE (NEGATIVE); NITRITE NEGATIVE (NEGATIVE); UROBILINOGEN 0.2 E.U./dl (0.2-1.0)
[2017-10-10 21:22] LABS: BACTERIA TRACE
[2017-10-11] VITALS: BP 160/90
[2017-10-11 07:13] LABS: BASO % 0.2 % (0.0-1.0); HEMOGLOBIN 10.2 g/dl (12.0-16.0); LYMPH # 0.6 10*3/uL (1.3-4.4); LYMPH % 11.6 % (27.0-41.0); MEAN CELL VOLUME 92.5 fl (81.0-99.0); MEAN CORPUSCULAR HGB 30.4 pg (27.0-31.0); MEAN CORPUSCULAR HGB CONC 32.9 g/dl (33.0-37.0); MEAN PLATELET VOLUME 9.6 fl (9.6-12.3); MONO # 0.5 10*3/uL (0.1-1.0); MONO % 9.9 % (3.0-9.0); NEUT # 4.2 10*3/uL (2.3-7.9); NEUT % 77.7 % (47.0-73.0); PLATELET COUNT AUTOMATED 219 10*3/uL (130-400); RED BLOOD COUNT 3.35 10*6/uL (4.10-5.10); RED CELL DISTRI WIDTH 12.8 % (0-14.5); WHITE BLOOD COUNT 5.3 10*3/uL (4.8-10.8)
[2017-10-11 07:20] LABS: ACT PARTIAL THROMBO TIME 23.3 SECONDS (20.8-31.5)
[2017-10-11 07:29] LABS: CHLORIDE 101 mmol/L (98-107); POTASSIUM 3.6 mmol/L (3.5-5.1); SODIUM 142 mmol/L (136-145)
[2017-10-11 07:42] LABS: ALBUMIN 3.5 gm/dl (3.1-4.5); ALKALINE PHOSPHATASE 83 U/L (45-117); BUN 23 mg/dl (7-24); CREATININE 0.84 mg/dL (0.55-1.02); FREE T4 2.26 ng/dl (0.76-1.46); SGOT/AST 26 IU/L (3-35); SGPT/ALT 38 U/L (12-78); THYROID STIM HORMONE (HS) 0.013 uIU/ml (0.358-4.75); TOTAL PROTEIN 6.9 gm/dL (6.4-8.2)
[2017-10-11 08:00] VITALS: BP 120/70
[2017-10-11 08:33] LABS: VITAMIN D, 25-HYDROXY 17.2 ng/mL (30-100)
[2017-10-11 12:00] VITALS: BP 140/56
[2017-10-11 16:00] VITALS: BP 141/56
[2017-10-11 20:00] VITALS: BP 154/99
[2017-10-12] VITALS: BP 156/68
[2017-10-12 08:00] VITALS: BP 168/64
[2017-10-12 12:00] VITALS: BP 155/89
[2017-10-12 16:00] VITALS: BP 136/63
[2017-10-12 20:00] VITALS: BP 150/59
[2017-10-13] VITALS: BP 157/66
[2017-10-13 07:58] VITALS: BP 143/65
[2017-10-13] MEDS ORDERED: PREDNISONE10 MG PO (10:34)
[2017-10-13] MEDS ORDERED: LEVAQUIN250 M1 PO (10:35)
[2017-10-13 12:10] VITALS: BP 124/63
== END 2017-10-13 13:25 | disposition home health service (06) | DRG 190 ==
LOC: 5E 15:02
PROVIDERS: Family Medicine
DX: J44.1 Chronic obstructive pulmonary disease with (acute) exacerbation (principal); J18.9 Pneumonia, unspecified organism; I50.32 Chronic diastolic (congestive) heart failure; D64.9 Anemia, unspecified; N28.1 Cyst of kidney, acquired; I35.1 Nonrheumatic aortic (valve) insufficiency; Z68.1 Body mass index [BMI] 19.9 or less, adult; J44.0 Chronic obstructive pulmonary disease with (acute) lower respiratory infection; K57.30 Diverticulosis of large intestine without perforation or abscess without bleeding; I71.4 Abdominal aortic aneurysm, without rupture; E03.9 Hypothyroidism, unspecified; M19.90 Unspecified osteoarthritis, unspecified site; K21.9 Gastro-esophageal reflux disease without esophagitis; E55.9 Vitamin D deficiency, unspecified; R63.6 Underweight; F17.210 Nicotine dependence, cigarettes, uncomplicated; E78.2 Mixed hyperlipidemia; Z66 Do not resuscitate; Z51.5 Encounter for palliative care; Z90.710 Acquired absence of both cervix and uterus; Z82.49 Family history of ischemic heart disease and other diseases of the circulatory system; Z82.3 Family history of stroke; Z80.0 Family history of malignant neoplasm of digestive organs; Z71.6 Tobacco abuse counseling; Z79.899 Other long term (current) drug therapy; Z79.82 Long term (current) use of aspirin

== ENCOUNTER 2017-10-21 15:03 | Inpatient (IN) | payer OTHER ==
[~2017-10-21] VITALS: Ht 154.9 cm; Wt 37.3 kg
[~2017-10-21 15:03] MED LIST changes: +B121000 MCG/2 IM; +KLOR-CON M1010 ME1 PO; +LASIX40 MG PO; +LEVAQUIN250 M1 PO
[2017-10-21 15:04] VITALS: BP 164/70
[2017-10-21 15:55] LABS: ACT PARTIAL THROMBO TIME 22.3 SECONDS (20.8-31.5)
[2017-10-21 16:18] LABS: HEMATOCRIT 30.8 % (37.0-47.0); MEAN CELL VOLUME 93.9 fl (81.0-99.0); MEAN CORPUSCULAR HGB 30.5 pg (27.0-31.0); MEAN CORPUSCULAR HGB CONC 32.5 g/dl (33.0-37.0); MEAN PLATELET VOLUME 10.2 fl (9.6-12.3); PLATELET COUNT AUTOMATED 211 10*3/uL (130-400); RED BLOOD COUNT 3.28 10*6/uL (4.10-5.10); RED CELL DISTRI WIDTH 13.1 % (0-14.5); WHITE BLOOD COUNT 9.5 10*3/uL (4.8-10.8)
[2017-10-21 16:34] LABS: ALBUMIN 3.2 gm/dl (3.1-4.5); ALKALINE PHOSPHATASE 62 U/L (45-117); BUN 21 mg/dl (7-24); CHLORIDE 105 mmol/L (98-107); CREATININE 0.75 mg/dL (0.55-1.02); LIPASE 283 U/L (73-393); SGOT/AST 17 IU/L (3-35); SGPT/ALT 30 U/L (12-78); SODIUM 142 mmol/L (136-145); TOTAL PROTEIN 6.2 gm/dL (6.4-8.2); TROPONIN I 0.042 ng/ml (<0.045)
[2017-10-21 16:47] LABS: TOTAL CELLS COUNTED 100 #CELLS
[2017-10-21 16:48] LABS: PLATELET SUFFICIENCY NORMAL (NORMAL)
[2017-10-21 16:49] LABS: POLYCHROMASIA SLIGHT
[2017-10-21 17:48] VITALS: BP 170/68
[2017-10-21 19:41] VITALS: BP 167/67
[2017-10-21] MEDS ORDERED: PREDNISONE10 MG PO (19:43)
[2017-10-21] MEDS ORDERED: OXYBUTYNIN5 MG PO (19:44)
[2017-10-22] VITALS (7 sets, daily range): BP systolic 128–168; BP diastolic 57–79
[2017-10-22 05:57] LABS: BUN 16 mg/dl (7-24); CHLORIDE 107 mmol/L (98-107); POTASSIUM 3.7 mmol/L (3.5-5.1); SODIUM 145 mmol/L (136-145)
[2017-10-22 06:06] LABS: BASO % 0.2 % (0.0-1.0); EOS # 0.2 10*3/uL (0.0-0.4); EOS % 1.2 % (1.0-4.0); HEMATOCRIT 29.8 % (37.0-47.0); HEMOGLOBIN 9.8 g/dl (12.0-16.0); LYMPH # 1.3 10*3/uL (1.3-4.4); LYMPH % 10.6 % (27.0-41.0); MEAN CORPUSCULAR HGB 30.9 pg (27.0-31.0); MEAN CORPUSCULAR HGB CONC 32.9 g/dl (33.0-37.0); MEAN PLATELET VOLUME 10.4 fl (9.6-12.3); MONO % 7.8 % (3.0-9.0); NEUT # 9.7 10*3/uL (2.3-7.9); NEUT % 79.5 % (47.0-73.0); PLATELET COUNT AUTOMATED 193 10*3/uL (130-400); RED BLOOD COUNT 3.17 10*6/uL (4.10-5.10); RED CELL DISTRI WIDTH 13.1 % (0-14.5); WHITE BLOOD COUNT 12.2 10*3/uL (4.8-10.8)
[2017-10-23] VITALS: BP 156/70
[2017-10-23 06:38] LABS: BASO % 0.2 % (0.0-1.0); EOS # 0.2 10*3/uL (0.0-0.4); EOS % 1.9 % (1.0-4.0); HEMATOCRIT 31.8 % (37.0-47.0); HEMOGLOBIN 10.3 g/dl (12.0-16.0); LYMPH # 1.2 10*3/uL (1.3-4.4); MEAN CELL VOLUME 94.1 fl (81.0-99.0); MEAN CORPUSCULAR HGB 30.5 pg (27.0-31.0); MEAN CORPUSCULAR HGB CONC 32.4 g/dl (33.0-37.0); MEAN PLATELET VOLUME 10.1 fl (9.6-12.3); MONO # 0.9 10*3/uL (0.1-1.0); MONO % 7.2 % (3.0-9.0); NEUT # 9.7 10*3/uL (2.3-7.9); NEUT % 80.2 % (47.0-73.0); PLATELET COUNT AUTOMATED 188 10*3/uL (130-400); RED BLOOD COUNT 3.38 10*6/uL (4.10-5.10); RED CELL DISTRI WIDTH 13.3 % (0-14.5)
[2017-10-23 06:50] LABS: BUN 19 mg/dl (7-24); CHLORIDE 105 mmol/L (98-107); CREATININE 0.78 mg/dL (0.55-1.02); POTASSIUM 3.5 mmol/L (3.5-5.1); SODIUM 142 mmol/L (136-145)
[2017-10-23 08:00] VITALS: BP 153/65
== END 2017-10-23 13:31 | disposition home or self-care (01) | DRG 563 ==
LOC: ED 15:03 → 4E 17:36 → EDHOLD 17:36 → 4E 19:02
PROVIDERS: Emergency Medicine; Internal Medicine; Internal Medicine Nephrology
PROC: 0PSKXZZ Reposition Right Ulna, External Approach (ICD-10-PCS; principal; 2017-10-22)
PROC: 0PSHXZZ Reposition Right Radius, External Approach (ICD-10-PCS; principal; 2017-10-22)
DX: S62.101A Fracture of unspecified carpal bone, right wrist, initial encounter for closed fracture (principal); R65.10 Systemic inflammatory response syndrome (SIRS) of non-infectious origin without acute organ dysfunction; I11.0 Hypertensive heart disease with heart failure; D64.9 Anemia, unspecified; I50.32 Chronic diastolic (congestive) heart failure; S52.501A Unspecified fracture of the lower end of right radius, initial encounter for closed fracture; E03.9 Hypothyroidism, unspecified; S52.601A Unspecified fracture of lower end of right ulna, initial encounter for closed fracture; Z68.1 Body mass index [BMI] 19.9 or less, adult; J44.9 Chronic obstructive pulmonary disease, unspecified; E55.9 Vitamin D deficiency, unspecified; E78.2 Mixed hyperlipidemia; R63.6 Underweight; R73.9 Hyperglycemia, unspecified; W18.11XA Fall from or off toilet without subsequent striking against object, initial encounter; M19.90 Unspecified osteoarthritis, unspecified site; K21.9 Gastro-esophageal reflux disease without esophagitis; K57.30 Diverticulosis of large intestine without perforation or abscess without bleeding; M81.0 Age-related osteoporosis without current pathological fracture; Z66 Do not resuscitate; Z51.5 Encounter for palliative care; Y93.89 Activity, other specified; Y92.091 Bathroom in other non-institutional residence as the place of occurrence of the external cause; Y99.8 Other external cause status; Z88.8 Allergy status to other drugs, medicaments and biological substances; Z79.899 Other long term (current) drug therapy; Z79.82 Long term (current) use of aspirin; Z87.01 Personal history of pneumonia (recurrent); Z90.710 Acquired absence of both cervix and uterus; Z98.51 Tubal ligation status; Z82.49 Family history of ischemic heart disease and other diseases of the circulatory system; Z82.3 Family history of stroke; Z80.0 Family history of malignant neoplasm of digestive organs; Z83.3 Family history of diabetes mellitus; Z87.891 Personal history of nicotine dependence

== ENCOUNTER → 2017-11-01 | Outpatient (CLI) | payer OTHER ==
[~2017-11-01] MED LIST changes: +OXYBUTYNIN5 MG PO
== END | disposition home or self-care (01) ==
LOC: ORTHO 03:06
DX: S52.501G Unspecified fracture of the lower end of right radius, subsequent encounter for closed fracture with delayed healing (principal); X58.XXXD Exposure to other specified factors, subsequent encounter; Z91.81 History of falling

== ENCOUNTER 2018-01-10 16:15 | Emergency (ER) | payer OTHER ==
[~2018-01-10] VITALS: Ht 154.9 cm; Wt 32.2 kg
[2018-01-10 18:49] VITALS: BP 168/70
== END 2018-01-10 18:59 | disposition home or self-care (01) ==
LOC: ED 16:15
DX: S52.122A Displaced fracture of head of left radius, initial encounter for closed fracture (principal); S52.612A Displaced fracture of left ulna styloid process, initial encounter for closed fracture; M54.5 Low back pain; I10 Essential (primary) hypertension; F17.210 Nicotine dependence, cigarettes, uncomplicated; Z79.899 Other long term (current) drug therapy; Z79.82 Long term (current) use of aspirin; W18.39XA Other fall on same level, initial encounter; Y93.89 Activity, other specified; Y92.89 Other specified places as the place of occurrence of the external cause; Y99.8 Other external cause status

== ENCOUNTER → 2018-01-16 | Outpatient (CLI) | payer OTHER | END | disposition home or self-care (01) | LOC: ORTHO 14:04 | DX: S52.592D Other fractures of lower end of left radius, subsequent encounter for closed fracture with routine healing (principal); X58.XXXD Exposure to other specified factors, subsequent encounter ==